=== PATIENT | female | born 1995 | race Caucasian/White ===

== ENCOUNTER → 2017-06-13 | Outpatient (CLI) | payer BC ==
[~2017-06-13] MED LIST: BENTYL10 MG PO; MOTRIN600 MG PO; NKHM; TRINESSA 281 TAB PO
[2017-06-17 18:05] LABS: FATS, NEUTRAL Normal (.); FATS, TOTAL Normal (.)
== END | disposition home or self-care (01) ==
LOC: LAB 15:45
PROVIDERS: Nurse Practitioner Family
DX: R19.7 Diarrhea, unspecified (principal)

== ENCOUNTER → 2017-06-18 | Outpatient (CLI) | payer BC ==
[2017-06-18 09:08] LABS: BASO % 0.4 % (0.0-1.0); EOS # 0.2 10*3/uL (0.0-0.4); EOS % 2.7 % (1.0-4.0); HEMATOCRIT 40.3 % (37.0-47.0); LYMPH # 2.2 10*3/uL (1.3-4.4); LYMPH % 27.8 % (27.0-41.0); MEAN CELL VOLUME 79.2 fl (81.0-99.0); MEAN CORPUSCULAR HGB 25.5 pg (27.0-31.0); MEAN CORPUSCULAR HGB CONC 32.3 g/dl (33.0-37.0); MEAN PLATELET VOLUME 10.8 fl (9.6-12.3); MONO # 0.7 10*3/uL (0.1-1.0); MONO % 9.2 % (3.0-9.0); NEUT # 4.8 10*3/uL (2.3-7.9); NEUT % 59.5 % (47.0-73.0); PLATELET COUNT AUTOMATED 293 10*3/uL (130-400); RED BLOOD COUNT 5.09 10*6/uL (4.10-5.10); RED CELL DISTRI WIDTH 13.1 % (0-14.5)
[2017-06-19 15:09] LABS: ATYPICAL PANCA <1:20 titer (Neg:<1:20)
[2017-06-20 13:04] LABS: SACCHAROMYCES CEREVISIAE IGA <20.0 Units (0.0-24.9)
== END | disposition home or self-care (01) ==
LOC: LAB 08:18
PROVIDERS: Internal Medicine Gastroenterology
DX: K50.00 Crohn's disease of small intestine without complications (principal)

== ENCOUNTER → 2017-12-08 | Outpatient (CLI) | payer BC ==
[2017-12-08 12:38] LABS: BASO # 0.1 10*3/uL (0.0-0.1); BASO % 0.5 % (0.0-1.0); EOS # 0.3 10*3/uL (0.0-0.4); EOS % 2.3 % (1.0-4.0); HEMATOCRIT 39.9 % (37.0-47.0); HEMOGLOBIN 13.1 g/dl (12.0-16.0); LYMPH # 2.6 10*3/uL (1.3-4.4); LYMPH % 20.8 % (27.0-41.0); MEAN CELL VOLUME 78.1 fl (81.0-99.0); MEAN CORPUSCULAR HGB 25.6 pg (27.0-31.0); MEAN CORPUSCULAR HGB CONC 32.8 g/dl (33.0-37.0); MEAN PLATELET VOLUME 10.3 fl (9.6-12.3); MONO % 7.6 % (3.0-9.0); NEUT # 8.6 10*3/uL (2.3-7.9); NEUT % 68.5 % (47.0-73.0); PLATELET COUNT AUTOMATED 301 10*3/uL (130-400); RED BLOOD COUNT 5.11 10*6/uL (4.10-5.10); WHITE BLOOD COUNT 12.5 10*3/uL (4.8-10.8)
[2017-12-08 12:58] LABS: ALBUMIN 3.6 gm/dl (3.1-4.5); ALKALINE PHOSPHATASE 83 U/L (45-117); BUN 9 mg/dl (7-24); CHLORIDE 104 mmol/L (98-107); CREATININE 0.72 mg/dL (0.55-1.02); POTASSIUM 3.8 mmol/L (3.5-5.1); SGOT/AST 21 IU/L (3-35); SGPT/ALT 38 U/L (12-78); SODIUM 138 mmol/L (136-145); TOTAL PROTEIN 7.3 gm/dL (6.4-8.2)
[2017-12-09 11:07] LABS: HEPATITIS B SURFACE AG Negative (Negative)
== END | disposition home or self-care (01) ==
LOC: LAB 12:14
PROVIDERS: Internal Medicine Gastroenterology
DX: K58.0 Irritable bowel syndrome with diarrhea (principal)

== ENCOUNTER → 2021-12-11 | Outpatient (CLI) | payer OTHER ==
[2021-12-11 10:16] LABS: BASO % 0.3 % (0.0-1.0); EOS # 0.2 10*3/uL (0.0-0.4); EOS % 1.8 % (1.0-4.0); HEMATOCRIT 39.2 % (37.0-47.0); LYMPH # 3.1 10*3/uL (1.3-4.4); LYMPH % 22.8 % (27.0-41.0); MEAN CELL VOLUME 81.8 fl (81.0-99.0); MEAN CORPUSCULAR HGB 25.7 pg (27.0-31.0); MEAN CORPUSCULAR HGB CONC 31.4 g/dl (33.0-37.0); MEAN PLATELET VOLUME 9.9 fl (9.6-12.3); MONO % 7.2 % (3.0-9.0); NEUT # 9.2 10*3/uL (2.3-7.9); NEUT % 67.6 % (47.0-73.0); PLATELET COUNT AUTOMATED 347 10*3/uL (130-400); RED BLOOD COUNT 4.79 10*6/uL (4.10-5.10); RED CELL DISTRI WIDTH 13.5 % (0-14.5); WHITE BLOOD COUNT 13.6 10*3/uL (4.8-10.8)
[2021-12-11 10:32] LABS: ALKALINE PHOSPHATASE 76 U/L (45-117); BUN 6 mg/dl (7-24); CHLORIDE 108 mmol/L (98-107); POTASSIUM 4.6 mmol/L (3.5-5.1); SGOT/AST 16 IU/L (3-35); SGPT/ALT 26 U/L (12-78); SODIUM 141 mmol/L (136-145); TOTAL PROTEIN 6.7 gm/dL (6.4-8.2)
[2021-12-13 15:07] LABS: TB1 Ag VALUE 0.04 IU/mL (.)
== END | disposition home or self-care (01) ==
LOC: LAB 09:51
PROVIDERS: ATTEND Internal Medicine Gastroenterology
DX: B19.10 Unspecified viral hepatitis B without hepatic coma (principal)